=== PATIENT | female | born 1945 | race Caucasian/White ===

== ENCOUNTER → 2017-09-02 | Outpatient (CLI) | payer MEDICARE, OTHER ==
[~2017-09-02] MED LIST: ACTONEL35 MG PO; AMITRIPTYLINE50 MG PO; BIOTIN1000 MCG PO; BP med; CALCIUM 500 W/V1 TAB PO; CALCIUM300 MG PO; CARDIZEM CD 30300 MG PO; COREG25 MG PO; COZAAR25 MG PO; IBUPROFEN800 MG PO; NORCO 325 MG-51 TAB PO; OMEGA-31000 MG PO; ONE DAILY1 TA1 PO; PREDNISONE 5MG5 MG PO; PRILOSEC 20MG20 MG PO; VESICARE10 MG PO; VITAMIN B-1000 MCG/T PO
== END ==
LOC: MC.RAD 09:51
DX: Z12.31 Encounter for screening mammogram for malignant neoplasm of breast (principal)

== ENCOUNTER → 2018-09-23 | Outpatient (CLI) | payer MEDICARE, OTHER | LOC: COL.VAS 09-07 13:15 | DX: I77.1 Stricture of artery (principal); R22.1 Localized swelling, mass and lump, neck ==

== ENCOUNTER → 2018-09-29 | Outpatient (CLI) | payer MEDICARE, OTHER | LOC: MC.RAD 14:09 | DX: Z12.31 Encounter for screening mammogram for malignant neoplasm of breast (principal); R92.0 Mammographic microcalcification found on diagnostic imaging of breast; N64.89 Other specified disorders of breast ==

== ENCOUNTER → 2018-10-07 | Outpatient (CLI) | payer MEDICARE, OTHER | LOC: MC.RAD 12:55 | DX: R92.0 Mammographic microcalcification found on diagnostic imaging of breast (principal) | CPT/HCPCS: G0279 ==

== ENCOUNTER → 2019-01-04 | Outpatient (CLI) | payer MEDICARE, OTHER | LOC: COL.VAS 12:56 | DX: R94.31 Abnormal electrocardiogram [ECG] [EKG] (principal) ==

== ENCOUNTER → 2019-01-18 | Outpatient (CLI) | payer MEDICARE, OTHER | LOC: COL.RAD 07:57 | DX: N18.3 Chronic kidney disease, stage 3 (moderate) (principal) ==

== ENCOUNTER 2019-01-25 16:16 | Inpatient (IN) | payer MEDICARE, OTHER ==
[2019-01-25] VITALS (152 sets, daily range): BP systolic 107; BP diastolic 66; PULSE 62; TEMP 97.5; O2SAT 83–100
[~2019-01-25] VITALS: Ht 160 cm; Wt 90.4 kg
[~2019-01-25 16:16] MED LIST changes: +AMITRIPTYLINE H50 M1 PO; -AMITRIPTYLINE50 MG PO; +AMOXICILLIN 8751 TAB PO; -BIOTIN1000 MCG PO; -CALCIUM 500 W/V1 TAB PO; +CALCIUM 600MG+D1 TAB PO; +COREG12.5 MG PO; -COREG25 MG PO; +COZAAR 50MG50 MG/TAB PO; -COZAAR25 MG PO; +NATURE'S BLE1000 MCG PO
[2019-01-25 16:52] LABS: BASO % 0.3 % (0.0-2.0); EOS # 0.1 (0.0-0.7); EOS % 0.6 % (0-4.0); GRAN # 5.6 (1.4-6.5); GRAN % 64.6 % (42.2-75.2); LYMPH # 2.3 (1.2-3.4); LYMPH % 26.9 % (20.0-51.0); MEAN CELL VOLUME 106 fl (80.0-100.0); MEAN CORPUSCULAR HGB CONC 30 g/dl (33.0-37.0); MEAN PLATELET VOLUME 9.2 fl (7.4-10.4); MONO # 0.6 (0.1-0.6); MONO % 6.9 % (1.7-9.3); PLATELET COUNT 370 K/mm3 (130-400); RED BLOOD COUNT 2.88 M/mm3 (4.10-5.30); REDCELL DISTRIBUTION WIDTH-CV 13.6 % (11.5-14.5)
[2019-01-25 16:53] LABS: HEMATOCRIT 30.6 % (37.0-47.0); HEMOGLOBIN 9.3 g/dl (12.5-16.0); MEAN CORPUSCULAR HEMOGLOBIN 32 pg (27.0-31.0)
[2019-01-25 16:58] LABS: ALANINE AMINOTRANSFERASE 17 U/L (9-52); ALBUMIN 4.1 gm/dL (3.5-5.0); ALKALINE PHOSPHATASE 59 U/L (50-136); ANION GAP 11 mmol/L (7-16); AST,SGOT 24 U/L (15-37); BILIRUBIN,TOTAL 0.3 mg/dL (0.0-1.0); BLOOD UREA NITROGEN 48 mg/dL (7-17); C-REACTIVE PROTEIN 0.6 mg/dL (0.0-0.9); CALCIUM 9.1 mg/dL (8.4-10.2); CARBON DIOXIDE 23 mmol/L (22-30); CHLORIDE 105 mmol/L (98-107); CREATININE, serum 1.54 (0.52-1.25); GLUCOSE 100 mg/dL (74-106); SODIUM 139 mmol/L (137-145); TOTAL PROTEIN 7.6 gm/dL (6.4-8.2)
[2019-01-25 17:14] LABS: TROPONIN-I < 0.012 ng/mL (0.000-0.035)
[2019-01-25 17:49] LABS: ARTERIAL BLD GAS O2 SATURATION 91.8 % (92-100); ARTERIAL BLD GAS TCO2 CT 23.4; ARTERIAL BLOOD GAS HCO3 22.2 meq/L (22-26); ARTERIAL BLOOD GAS PCO2 40.1 mmHg (35-45); ARTERIAL BLOOD GAS PO2 69.5 mmHg (80-100); ARTERIAL BLOOD GAS pH 7.36 (7.35-7.45)
[2019-01-25] MEDS ORDERED: ROBITUSSIN A-C S1 M1 PO (18:12)
[2019-01-25] MEDS ORDERED: DETROL LA4 PO (18:13)
[2019-01-25] MEDS ORDERED: FORTEO250 MCG/ML (18:14)
[2019-01-25] MEDS ORDERED: ALDACTONE 25MG25 M1 PO (18:14)
[2019-01-25] MEDS ORDERED: TYLENOL 500MG500 MG PO (18:17)
[2019-01-25] MEDS ORDERED: ERGOCALCIFER50000 IU PO (18:17)
[2019-01-25] MEDS ORDERED: NATURAL E400 IU PO (18:19)
[2019-01-25] MEDS ORDERED: SYNTHROID0.05 MG/TA PO (18:19)
[2019-01-25] MEDS ORDERED: VITAFUSION PO (22:23)
[2019-01-26] VITALS (372 sets, daily range): BP systolic 123–187; BP diastolic 48–108; PULSE 58–84; TEMP 36.6–36.8; O2SAT 35–100
[2019-01-26 05:57] LABS: BASO % 0.4 % (0.0-2.0); EOS # 0.1 (0.0-0.7); EOS % 1.8 % (0-4.0); GRAN # 4.2 (1.4-6.5); GRAN % 58.5 % (42.2-75.2); LYMPH # 2.2 (1.2-3.4); LYMPH % 31.2 % (20.0-51.0); MEAN CELL VOLUME 105 fl (80.0-100.0); MEAN CORPUSCULAR HGB CONC 31 g/dl (33.0-37.0); MEAN PLATELET VOLUME 9.4 fl (7.4-10.4); MONO # 0.6 (0.1-0.6); MONO % 7.8 % (1.7-9.3); PLATELET COUNT 335 K/mm3 (130-400); RED BLOOD COUNT 2.67 M/mm3 (4.10-5.30); REDCELL DISTRIBUTION WIDTH-CV 13.5 % (11.5-14.5)
[2019-01-26 05:59] LABS: HEMATOCRIT 28.1 % (37.0-47.0); HEMOGLOBIN 8.6 g/dl (12.5-16.0); MEAN CORPUSCULAR HEMOGLOBIN 32 pg (27.0-31.0)
[2019-01-26 06:10] LABS: CALCIUM 8.7 mg/dL (8.4-10.2); CREATININE, serum 1.2 (0.52-1.25); POTASSIUM 4.3 mmol/L (3.4-5.0)
--- NOTE | 2019-01-26 11:23 | NUR ---
Dr Potts rounding on patient at bedside, plan for echo today and transfer to floor unit or home pending results. Dr Morrow notified of plan and new orders for heart healthy diet implemented.
--- NOTE | 2019-01-26 11:51 | NUR ---
SW met with patient about discharge planning. Patient lives independently at home with her . Agus's PCP is Dr Garza and she obtains prescriptions from [facility] or [facility]. Patient does not use any home health or DME in the home. Patient reports she does have a DPOA. Patient plans to return home with her when she is discharged. HANS does not anticipate any discharge needs.
--- NOTE | 2019-01-26 16:37 | NUR ---
Report called to Lexy NEAL on medical floor. Will take pt to room 311 on tele.
--- NOTE | 2019-01-26 16:37 | NUR ---
received report from ÁNGEL Bach.
--- NOTE | 2019-01-26 17:00 | NUR ---
PATIENT ARRIVED TO ROOM 311 VIA WHEELCHAIR ACCOMPANIED BY SAUD RN.PATIENT ORIENTED TO ROOM.DENIES ANY NEEDS AT THIS TIME.CALL LIGHT IN REACH
--- NOTE | 2019-01-26 17:06 | NUR ---
Report given to RN, patient transferred up to the 3rd floor via wheelchair, belongings sent with patient, handoff given to Lexy at bedside.
--- NOTE | 2019-01-26 18:35 | NUR ---
pt awake,a/ox3.denies pain or discomfort at this time.LSCTA.patient VSS.HR 90s on monitor.denies dizziness,patient denies any concerns at this time.will continue to monitor.call light in reach
--- NOTE | 2019-01-26 18:57 | NUR ---
REPORT GIVEN TO ÁNGEL SCHULTE.
--- NOTE | 2019-01-26 20:05 | NUR ---
Patient resting in recliner, assessment completed- lungs clear, abdominal sound active, alert and oriented, iv site flushed- no complications, denies pain. Evening medications administered, no needs at this time.
[2019-01-27 03:09] VITALS: BP 134/47; PULSE 78; TEMP 97.8
--- NOTE | 2019-01-27 05:00 | NUR ---
PT slept for most of the night, VSS, no reports of pain. No needs at this time.
--- NOTE | 2019-01-27 06:48 | NUR ---
report given to ÁNGEL Jeffery.
[2019-01-27 07:11] LABS: BASO % 0.5 % (0.0-2.0); EOS # 0.2 (0.0-0.7); EOS % 3.4 % (0-4.0); GRAN # 3.5 (1.4-6.5); GRAN % 55.1 % (42.2-75.2); LYMPH # 2.1 (1.2-3.4); LYMPH % 33.8 % (20.0-51.0); MEAN CELL VOLUME 104 fl (80.0-100.0); MEAN CORPUSCULAR HGB CONC 31 g/dl (33.0-37.0); MEAN PLATELET VOLUME 9.3 fl (7.4-10.4); MONO # 0.4 (0.1-0.6); MONO % 6.7 % (1.7-9.3); PLATELET COUNT 348 K/mm3 (130-400); RED BLOOD COUNT 3.07 M/mm3 (4.10-5.30); REDCELL DISTRIBUTION WIDTH-CV 13.4 % (11.5-14.5)
[2019-01-27 07:14] LABS: HEMATOCRIT 31.8 % (37.0-47.0); HEMOGLOBIN 9.8 g/dl (12.5-16.0); MEAN CORPUSCULAR HEMOGLOBIN 32 pg (27.0-31.0)
[2019-01-27 07:17] LABS: CALCIUM 9.5 mg/dL (8.4-10.2); CREATININE, serum 1.17 (0.52-1.25); POTASSIUM 4.1 mmol/L (3.4-5.0)
[2019-01-27 07:41] VITALS: BP 176/62; PULSE 80; TEMP 98
--- NOTE | 2019-01-27 07:57 | NUR ---
Pt is awake and A/Ox4, ambulating around room. She denies any pain or discomfort. Saline lock to right arm is free of complications. Heart remains in NSR per tele, in the 90s. Pt denies any other needs, anxious to see to go home.
[2019-01-27 11:32] VITALS: BP 134/39; PULSE 82; TEMP 98.1
--- NOTE | 2019-01-27 11:32 | NUR ---
First visit from the bakery helper. No needs right now.
--- NOTE | 2019-01-27 12:16 | NUR ---
Pt is sitting up in bed. Updated on plan of care by JANELLE Bonilla. Pt denies pain or any other needs.
[2019-01-27 17:14] VITALS: BP 137/70; PULSE 89; TEMP 98.1
--- NOTE | 2019-01-27 17:37 | NUR ---
Pt has had an overall uneventful shift. She has been ambulating hallways with without any complications. Denies any other needs.
[2019-01-27 19:36] VITALS: BP 129/47; PULSE 87; TEMP 97.9
--- NOTE | 2019-01-27 21:58 | NUR ---
Pt resting in recliner wtaching tv, assessment completed- see shift assessment for details. Denies pain, VSS. Given evening medications. Pt on telemetry, HR 90. No further needs at this time.
[2019-01-27 23:22] VITALS: BP 152/60; PULSE 84; TEMP 97.1
[2019-01-28 03:16] VITALS: BP 134/49; PULSE 82; TEMP 97.6
--- NOTE | 2019-01-28 05:01 | NUR ---
Pt slept most of the night, VSS, afebrile. Did refuse heparin at 0215- pt states, "I'm going home today, I don't need it". Discussed with patient prevention of DVT's, pt still did not want to take it. No needs at this time.
--- NOTE | 2019-01-28 06:47 | NUR ---
report given to ÁNGEL Stevens.
[2019-01-28 07:39] VITALS: BP 142/48; PULSE 81; TEMP 97.8
--- NOTE | 2019-01-28 08:05 | NUR ---
Assessment completed, alert/oriented, vital signs stable, denies any pain or discomfort, heart RRR/ SR on tele and heart rate is 80-90, distal pulses are palpable, lungs CTA/ no reps.diffiuclty, she is sitting up in bed ordering breakfast, she has given her POM / Forteo injection and medicaiton returned to the fridge, she is up in the room independnetly and hoping to be discharged this morning some time
--- NOTE | 2019-01-28 09:48 | NUR ---
HANS attended clinical rounds. The patient is to discharge back home with her today, 01/28. SW presented and explained the IM form to the patient. The patient verbalized understanding, signed, and she was provided a copy. No additional needs at this time.
[2019-01-28] MEDS ORDERED: COREG 6.256.25 MG/TA PO (09:56)
--- NOTE | 2019-01-28 11:24 | NUR ---
discharge orders reviewed with the patient, instructed to follow up with PCP and Cardiology as we have scheduled for her, discussed medication changes, script for Coreg sent to pharmacy (1/2 of previous dose), IV removed she is abmulatory and leaving with her , MD ALLERGY IMMUNOLOGY escorted her out
== END 2019-01-28 11:42 | disposition home or self-care (01) | DRG 309 ==
LOC: COL.ER 16:16 → ICU 17:44 → MEDICAL 01-26 16:55
PROVIDERS: Emergency Medicine; ADMIT Hospitalist
DX: R00.1 Bradycardia, unspecified (principal); I13.0 Hypertensive heart and chronic kidney disease with heart failure and stage 1 through stage 4 chronic kidney disease, or unspecified chronic kidney disease; N17.9 Acute kidney failure, unspecified; I49.5 Sick sinus syndrome; I48.91 Unspecified atrial fibrillation; D64.9 Anemia, unspecified; E03.9 Hypothyroidism, unspecified; N18.3 Chronic kidney disease, stage 3 (moderate); M81.0 Age-related osteoporosis without current pathological fracture; R51 Headache; Z88.9 Allergy status to unspecified drugs, medicaments and biological substances; T88.7XXA Unspecified adverse effect of drug or medicament, initial encounter; I27.20 Pulmonary hypertension, unspecified; M35.3 Polymyalgia rheumatica; I50.9 Heart failure, unspecified; E66.9 Obesity, unspecified; D50.9 Iron deficiency anemia, unspecified; N32.81 Overactive bladder; G47.00 Insomnia, unspecified; Z90.710 Acquired absence of both cervix and uterus; Z96.651 Presence of right artificial knee joint
CPT/HCPCS: 99222-AI; 99231-AI; 99239; J1644; J7030

== ENCOUNTER → 2019-04-11 | Outpatient (CLI) | payer MEDICARE, OTHER ==
[~2019-04-11] MED LIST changes: +ALDACTONE 25MG25 M1 PO; +COREG 6.256.25 MG/TA PO; +DETROL LA4 PO; +ERGOCALCIFER50000 IU PO; +FORTEO250 MCG/ML; +NATURAL E400 IU PO; +ROBITUSSIN A-C S1 M1 PO; +SYNTHROID0.05 MG/TA PO; +TYLENOL 500MG500 MG PO; +VITAFUSION PO
== END ==
LOC: MC.RAD 08:47
DX: R92.0 Mammographic microcalcification found on diagnostic imaging of breast (principal); R92.1 Mammographic calcification found on diagnostic imaging of breast

== ENCOUNTER 2019-05-06 17:01 | Observation (INO) | payer MEDICARE, OTHER ==
[~2019-05-06] VITALS: Ht 160 cm; Wt 94.0 kg
[2019-05-06] VITALS (8 sets, daily range): BP systolic 14–158; BP diastolic 51–68; PULSE 78–844; TEMP 98.2–98.4
[2019-05-06 17:59] LABS: BASO % 0.5 % (0.0-2.0); EOS # 0.1 (0.0-0.7); EOS % 1.6 % (0-4.0); GRAN % 66.6 % (42.2-75.2); LYMPH % 25.8 % (20.0-51.0); MEAN CELL VOLUME 91 fl (80.0-100.0); MEAN CORPUSCULAR HGB CONC 29 g/dl (33.0-37.0); MEAN PLATELET VOLUME 9.6 fl (7.4-10.4); MONO # 0.4 (0.1-0.6); MONO % 5.2 % (1.7-9.3); PLATELET COUNT 323 K/mm3 (130-400); RED BLOOD COUNT 2.33 M/mm3 (4.10-5.30); REDCELL DISTRIBUTION WIDTH-CV 15.7 % (11.5-14.5)
[2019-05-06 18:02] LABS: HEMATOCRIT 21.1 % (37.0-47.0); HEMOGLOBIN 6.2 g/dl (12.5-16.0); MEAN CORPUSCULAR HEMOGLOBIN 27 pg (27.0-31.0)
[2019-05-06 18:12] LABS: ALBUMIN 3.9 gm/dL (3.5-5.0); BILIRUBIN,TOTAL 0.2 mg/dL (0.0-1.0); CALCIUM 9.2 mg/dL (8.4-10.2); CREATININE, serum 1.39 (0.52-1.25); POTASSIUM 4.2 mmol/L (3.4-5.0); TOTAL PROTEIN 7.1 gm/dL (6.4-8.2)
[2019-05-06 18:22] LABS: INR 0.9 (0.8-3.0); PROTHROMBIN TIME 10.8 SECONDS (9.7-12.8)
[2019-05-06 18:24] LABS: PARTIAL THROMBOPLASTIN TIME 26.9 SECONDS (26.0-37.0)
[2019-05-06] MEDS ORDERED: VITAMIN D 50,1.25 MG PO (20:27)
--- NOTE | 2019-05-06 20:30 | NUR ---
pt arrived to medical unit- reports no pain, no n/v, no dizziness. reports of "i have just felt kind of out of it". VSS. Pt skin is pale. iv to the left hand. blood started, tolerating well. stayed in room for first 15 min. no needs at this time. call light in reach
[2019-05-06 22:21] LABS: IRON,SERUM 22 ug/dL (35-150)
[2019-05-06 22:30] LABS: TOTAL IRON BINDING CAPACITY 477 ug/dL (265-497)
[2019-05-06 22:57] LABS: FERRITIN 8 ng/mL (11-264)
[2019-05-07] VITALS (8 sets, daily range): BP systolic 134–160; BP diastolic 53–77; PULSE 72–95; TEMP 97.8–98.2
[2019-05-07 02:19] LABS: HEMATOCRIT 23.4 % (37.0-47.0); HEMOGLOBIN 6.9 g/dl (12.5-16.0)
--- NOTE | 2019-05-07 04:26 | NUR ---
STARTED 2ND BLOOD TRANSFUSION AT THIS TIME. REMAINING WITH PT FOR FISRT 15 MINS. PT VSS. WILL CONTINUE VITAL CHECKS PER PROTOCOL. REPORTS NO S/S OF REACTION AT THIS TIME. WILL CONTINUE MONITOR.
[2019-05-07 05:04] LABS: MUCOUS Present /lpf; PH 6 (5-8); SQUAMOUS EPITHELIAL None Seen /hpf; URINE APPEARANCE Clear; URINE BACTERIA None Seen /hpf; URINE BILIRUBIN Negative (NEGATIVE); URINE BLOOD Negative (NEGATIVE); URINE COLOR Straw; URINE GLUCOSE Negative (NEGATIVE); URINE KETONE Negative (NEGATIVE); URINE LEUKOCYTE ESTERASE Negative (NEGATIVE); URINE NITRATE Negative (NEGATIVE); URINE PROTEIN(semi-quant) Negative (NEGATIVE); URINE RBC None Seen /hpf; URINE UROBILINOGEN Negative (NEGATIVE)
[2019-05-07 07:22] LABS: COLLECTION METHOD CLEAN CATCH
--- NOTE | 2019-05-07 07:31 | NUR ---
REPORT GIVEN TO ÁNGEL MOCTEZUMA. PT REPORTS NO NEEDS
--- NOTE | 2019-05-07 07:45 | NUR ---
PATIENT ASSESSMENT COMPLETED. SHE DENIES ANY PAIN OR NEEDS LITTLE SOB WITH ACTIVITY. SHE IS HOPING TO GO HOME TODAY.
[2019-05-07 07:58] LABS: BASO % 0.8 % (0.0-2.0); EOS # 0.1 (0.0-0.7); EOS % 2.4 % (0-4.0); GRAN # 2.5 (1.4-6.5); GRAN % 49.3 % (42.2-75.2); HEMATOCRIT 26.6 % (37.0-47.0); HEMOGLOBIN 8.3 g/dl (12.5-16.0); LYMPH # 1.9 (1.2-3.4); LYMPH % 37.6 % (20.0-51.0); MEAN CELL VOLUME 91 fl (80.0-100.0); MEAN CORPUSCULAR HEMOGLOBIN 28 pg (27.0-31.0); MEAN CORPUSCULAR HGB CONC 31 g/dl (33.0-37.0); MEAN PLATELET VOLUME 9.4 fl (7.4-10.4); MONO # 0.5 (0.1-0.6); MONO % 9.7 % (1.7-9.3); PLATELET COUNT 279 K/mm3 (130-400); RED BLOOD COUNT 2.94 M/mm3 (4.10-5.30)
[2019-05-07 08:09] LABS: CALCIUM 9.4 mg/dL (8.4-10.2); CREATININE, serum 1.18 (0.52-1.25); POTASSIUM 4.5 mmol/L (3.4-5.0)
--- NOTE | 2019-05-07 11:51 | NUR ---
HANS met with the patient and her , Dino to discuss a discharge plan. The pt lives in [place] with Dino. The pt has a cane and a walker but does not use them. The pt reports independence with ADLs. The pt's PCP is Dr. Garza and receives medications from [facility] with no difficulties. The pt does not have advanced directives in the EMR but reports they are completed and designate Dino Arnold. The pt plans to return home upon discharge with Dino providing transportation. There are no additional needs at this time.
--- NOTE | 2019-05-07 12:30 | NUR ---
PATIENT DECLINED TO TAKE IRON TABLET HERE SHE WILL TAKE AT HOME WHEN SHE EATS LUNCH.
[2019-05-07] MEDS ORDERED: FERROUS SU325 MG/TAB PO (12:34)
--- NOTE | 2019-05-07 13:30 | NUR ---
PATIENT DISCHARGE INFORMATION REVIEWED WITH PATIENT. NEW SCRIPT SENT TO [facility] PER PREFERENCE. SHE DENIES ANY QUESTIONS. ALL BELONGINGS SENT WITH HER NOTHING IN THE [facility] OR PHARMACY. WAITING FOR HUSBANDS ARRIVAL.
[2019-05-09 11:00] LABS: TRANSFERRIN 358 mg/dL (192-382)
== END 2019-05-07 13:40 | disposition home or self-care (01) ==
LOC: COL.ER 17:01 → MEDICAL 18:45
PROVIDERS: Family Medicine; Nurse Practitioner Family; ADMIT Internal Medicine
DX: I12.9 Hypertensive chronic kidney disease with stage 1 through stage 4 chronic kidney disease, or unspecified chronic kidney disease (principal); N18.3 Chronic kidney disease, stage 3 (moderate); D63.1 Anemia in chronic kidney disease; Z66 Do not resuscitate; E03.9 Hypothyroidism, unspecified; M81.0 Age-related osteoporosis without current pathological fracture; M35.3 Polymyalgia rheumatica; Z79.899 Other long term (current) drug therapy; Z90.710 Acquired absence of both cervix and uterus; Z90.49 Acquired absence of other specified parts of digestive tract; Z96.651 Presence of right artificial knee joint; N32.81 Overactive bladder; G47.00 Insomnia, unspecified
CPT/HCPCS: C9113; G0378; P9016

== ENCOUNTER 2019-06-29 13:00 | Outpatient (RCR) | payer MEDICARE, OTHER ==
[2019-05-18 10:07] VITALS: BP 154/71; PULSE 88; TEMP 97.6
[2019-06-09 16:24] VITALS: BP 150/66; PULSE 85; TEMP 97.8
[~2019-06-29] VITALS: Ht 160 cm; Wt 93.2 kg
[~2019-06-29 13:00] MED LIST changes: +BIOTIN5000 MCG PO; +FERROUS SU325 MG/TAB PO; +FERROUSAL325 MG PO; +FORTEO250 MCG/ML INJ; +VITAMIN D 50,1.25 MG PO
[2019-06-29 13:54] VITALS: BP 139/56; PULSE 86; TEMP 98.1
== END 2019-06-29 15:46 | disposition home or self-care (01) ==
LOC: EUO 13:00
DX: D50.9 Iron deficiency anemia, unspecified (principal); Z79.899 Other long term (current) drug therapy
CPT/HCPCS: J2916; J7050

== ENCOUNTER → 2019-12-01 | Outpatient (CLI) | payer MEDICARE, OTHER | LOC: MC.RAD 11:34 | DX: Z12.31 Encounter for screening mammogram for malignant neoplasm of breast (principal) ==

== ENCOUNTER → 2020-12-03 | Outpatient (CLI) | payer MEDICARE, OTHER ==
[~2020-12-03] MED LIST changes: +BONIVA150 MG PO; +COREG 25MG25 MG/TAB PO; +K-DUR 10 MEQ T10 MEQ PO; +LASIX 40MG TABL40 MG PO
== END ==
LOC: MC.RAD 09:56
DX: Z12.31 Encounter for screening mammogram for malignant neoplasm of breast (principal)

== ENCOUNTER → 2021-12-13 | Outpatient (CLI) | payer MEDICARE, OTHER | LOC: MC.RAD 10:53 | DX: Z12.31 Encounter for screening mammogram for malignant neoplasm of breast (principal) ==

== ENCOUNTER → 2022-05-29 | Outpatient (CLI) | payer MEDICARE, OTHER | LOC: COL.RAD 08:33 | DX: M51.26 Other intervertebral disc displacement, lumbar region (principal); M51.27 Other intervertebral disc displacement, lumbosacral region ==

== ENCOUNTER 2023-07-06 13:11 | Inpatient (IN) | payer MEDICARE, OTHER ==
[~2023-07-06] VITALS: Ht 160 cm; Wt 86.0 kg
[2023-07-06 14:27] LABS: BASO # 0.1 K/mm3 (0.0-0.2); BASO % 0.6 % (0.0-2.0); EOS # 0.2 K/mm3 (0.0-0.7); EOS % 2.5 % (0.0-4.0); GRAN # 6.1 K/mm3 (1.4-6.5); GRAN % 75.8 % (42.2-75.2); HEMOGLOBIN 10.8 g/dl (12.5-16.0); LYMPH # 1.2 K/mm3 (1.2-3.4); LYMPH % 14.7 % (20.0-51.0); MEAN CELL VOLUME 106 fl (80.0-100.0); MEAN CORPUSCULAR HEMOGLOBIN 34 pg (27-31); MEAN CORPUSCULAR HGB CONC 32 g/dl (33.0-37.0); MEAN PLATELET VOLUME 10.2 fl (7.4-10.4); MONO # 0.5 K/mm3 (0.1-0.6); PLATELET COUNT 302 K/mm3 (130-400); REDCELL DISTRIBUTION WIDTH-CV 13.1 % (11.5-14.5)
[2023-07-06 14:28] LABS: HEMATOCRIT 33.9 % (37.0-47.0)
[2023-07-06 14:30] VITALS: BP 104/75; PULSE 111
[2023-07-06 14:30] LABS: INR 1.2 (0.8-3.0); PROTHROMBIN TIME 12.6 SECONDS (9.7-12.8)
[2023-07-06 14:32] LABS: BILIRUBIN,TOTAL 0.6 mg/dL (0.2-1.2); CREATININE, serum 1.22 mg/dL (0.57-1.11); POTASSIUM 3.8 mmol/L (3.5-4.5); TOTAL PROTEIN 7.6 gm/dL (6.2-8.1)
[2023-07-06 14:36] LABS: TROPONIN-I 0.018 ng/mL (0.00-0.033)
[2023-07-06] MEDS ORDERED: LASIX 20MG TABL20 MG PO (15:59)
[2023-07-06] MEDS ORDERED: COZAAR100 MG PO (16:04)
[2023-07-06 17:00] VITALS: BP_SYST 117
[2023-07-06 18:04] VITALS: BP 117/74; PULSE 96; TEMP 97.8
--- NOTE | 2023-07-06 18:29 | NUR ---
Patient arrived to the unito aproximateley 1800, alert and oriented x 4, VSS, RA, getting cardizem gtt at 5mg/hr. Assessment intake completed.
[2023-07-06 19:07] VITALS: BP_SYST 117
[2023-07-06 19:22] VITALS: BP 106/56; PULSE 106; TEMP 98.3
--- NOTE | 2023-07-06 20:00 | NUR ---
CARDIZEM GTTS RUNNING AT 5ML/HR.
[2023-07-06 23:50] VITALS: BP 101/46; PULSE 88; TEMP 98.3
[2023-07-07] VITALS (12 sets, daily range): BP systolic 100–120; BP diastolic 50–67; PULSE 50–99; TEMP 97–97.9
--- NOTE | 2023-07-07 00:53 | NUR ---
UPON SHIFT ASSESSMENT, MAY WAS UP IN BED EATING DINNER. SHE DENIED PAIN AND SOA. BILATERAL FINE CRACKLES WERE AUSCULTATED IN UPPER LOBES THAT CLEARED WITH COUGH. TELE READS AFIB WITH 89 BPM. OTHER VSS ARE WNL. CALL LIGHT WITHIN REACH.
--- NOTE | 2023-07-07 01:40 | NUR ---
REASSESSED PATIENT FOLLOWING COUGHING EPISODE. TACHYCARDIA 122 RESOLVED TO 90 ON TELE AND O2 SAT 96-97%. PATIENT DENIED CHEST PAIN AND DYSPNEA RESOLVED AFTER COUGHING CEASED. PATIENT REMAINS IN AFIB. AXO X 4.
--- NOTE | 2023-07-07 07:05 | NUR ---
TOWARDS END OF SHIFT, MAY REMAINS IN AFIB WITH RATES 80-90 BPM. SHE DENIES PAIN, BUT STILL COMPLAINS OF COUGH. VSS ARE OTHERWISE WNL. CARDIZEM GTTS RUNNING 5ML/HR CALL LIGHT WITHIN REACH.
[2023-07-07 08:54] LABS: ANION GAP 15 mmol/L (7-16); BLOOD UREA NITROGEN 19 mg/dL (10-20); C-REACTIVE PROTEIN 15.16 mg/dL (0.00-0.50); CALCIUM 10.2 mg/dL (8.4-10.2); CARBON DIOXIDE 22 mmol/L (23-31); CHLORIDE 102 mmol/L (98-107); CREATININE, serum 1.25 mg/dL (0.57-1.11); GLUCOSE 145 mg/dL (70-99); POTASSIUM 4.1 mmol/L (3.5-4.5); SODIUM 139 mmol/L (136-145)
[2023-07-07 09:05] LABS: TROPONIN-I < 0.010 ng/mL (0.00-0.033)
--- NOTE | 2023-07-07 15:35 | NUR ---
cemetery workers supervisor attempted to contact patient to discuss discharge planning. Patient did not answer. SW will follow.
--- NOTE | 2023-07-07 20:00 | NUR ---
UPON SHIFT ASSESSMENT MAY WAS UP IN BEDSIDE CHAIR AND IN AN AGREEABLE MOOD. SHE COMPLAINED OF NO PAIN OR DYSPNEA. LUNG SOUNDS CLEAR AND MAY IS AXO X 4 WITH MINIMAL + 1 EDEMA IN LOWER EXTREMITIES. CALL LIGHT WITHIN REACH.
[2023-07-08 01:00] VITALS: BP_SYST 111
[2023-07-08 03:09] VITALS: BP 107/51; PULSE 93; TEMP 97.6
[2023-07-08 05:11] VITALS: BP_SYST 107
--- NOTE | 2023-07-08 05:56 | NUR ---
TOWARDS THE END OF SHIFT, MAY WAS SLEEPING SOUNDLY. SHE AWOKE AND REQUESTED I GIVE HER SYNTHROID AND DOXYCYCLINE 1 HOUR APART. SHE DENIED PAIN AND WAS EAGER TO GET BACK TO SLEEP. SHE REMAINS AFIB RATE CONTROLLED 70-80 BPM. CALL LIGHT WITHIN REACH.
[2023-07-08 07:39] VITALS: BP 113/72; PULSE 88; TEMP 97.7
[2023-07-08 08:24] VITALS: BP_SYST 113
--- NOTE | 2023-07-08 08:33 | NUR ---
PATIENT ALERT AND ORIENTED X4. PATIENT RESTING IN CHAIR. SHE EXPRESSED LOOKING FORWARDS TO BEING DISCHARGED. PATIENT REPORTS NO PAIN AND SOME COUGH BUT SAYS ITS GETTING BETTER. TALKED TO HER ABOUT MEDICATION DISAGE CHANGES. CALL LIGHT WITHIN REACH, NO OTHER CONCERNS AT THIS TIME.
[2023-07-08] MEDS ORDERED: ELIQUIS 5MG PO (09:48)
[2023-07-08] MEDS ORDERED: MONODOX100 PO (09:48)
[2023-07-08] MEDS ORDERED: DECADRON6 MG PO (09:49)
[2023-07-08] MEDS ORDERED: CARDIZEM CD 30300 MG PO ×2 (09:49)
[2023-07-08] MEDS ORDERED: PROAIR HFA0.09 MG/AC IH (09:50)
[2023-07-08 09:58] LABS: HEMOGLOBIN 10.5 g/dl (12.5-16.0); MEAN CELL VOLUME 104 fl (80.0-100.0); MEAN CORPUSCULAR HEMOGLOBIN 33 pg (27-31); MEAN CORPUSCULAR HGB CONC 32 g/dl (33.0-37.0); MEAN PLATELET VOLUME 9.6 fl (7.4-10.4); PLATELET COUNT 377 K/mm3 (130-400); RED BLOOD COUNT 3.15 M/mm3 (4.10-5.30); REDCELL DISTRIBUTION WIDTH-CV 12.8 % (11.5-14.5)
[2023-07-08 10:01] LABS: HEMATOCRIT 32.8 % (37.0-47.0)
[2023-07-08 10:11] LABS: CALCIUM 10.2 mg/dL (8.4-10.2); CREATININE, serum 1.63 mg/dL (0.57-1.11); POTASSIUM 4.4 mmol/L (3.5-4.5)
[2023-07-08 10:41] LABS: LYMPHOCYTE 8 % (20.0-51.0); NEUTROPHILS 91 % (42.0-75.2); PLATELET ESTIMATE NORMAL (NORMAL)
[2023-07-08 10:42] LABS: HYPOCHROMIA 1+
--- NOTE | 2023-07-08 11:41 | NUR ---
novelty worker (HANS) contacted patient via telephone due to COVID protocol to discuss discharge planning. Patient confirmed she lives in [place] with her , Dino P# [phone]. Patient expressed she sees Dr. Garza currently but they are retiring and she will begin to see Dr. Rider after that. Patient's preferred pharmacy is [facility] in [place]. Patient denied any current issues with affording her medications but she received a new medication "Eliquis" that may be expensive. SW expressed to speak with her pharmacy to determine if they have discounts available. Patient expressed she was reading the information on the medication and there was concerns about her liver and kidney, so she was going to reach out to her kidney and liver doctors prior to taking the medications. SW also expressed she could speak with Dr. Cm the hospitalist with any additional concerns while in the hospital. Patient has a [facility] appointing Nanda and Dino Underwood as agents. Patient has a CPAP machine at home and reports she is independent with ADLS. SW spoke with patient about home health services to determine if she was interested in those services. Patient declined home health services as PT notified her that she did not need those services returning home. Patient would like to return home at time of discharge. Patient did not have any questions or concerns at this time. novelty worker contacted patient's , Dino, to notify him of patient's discharge. SW expressed patient was going to get in touch with him after speaking with her nurse to ensure she did not need any additional treatments prior to discharge. SW expressed she wanted to notify Dino patient would be on a new medication, "Eliquis" and patient had concerns about side effects to her kidney and liver and would speak with her doctors about them. SW mentioned home health and that patient declined these services. Dino agreed he did not feel it was necessary at this time. Discharge Plan: Home
[2023-07-08] MEDS ORDERED: TOPROL XL 50MG50 MG PO (12:04)
--- NOTE | 2023-07-08 12:46 | NUR ---
PATIENT DISCHARGE INSTRUCTIONS GIVEN. NO QUESTIONS OR CONCERNS FROM PATIENT. PATIENT ESCORTED OUT OF UNIT BY MEDICAL STAFF.
== END 2023-07-08 12:50 | disposition home or self-care (01) | DRG 177 ==
LOC: COL.ER 13:11 → MEDICAL 15:51
PROVIDERS: Emergency Medicine; ADMIT Internal Medicine
DX: U07.1 COVID-19 (principal); J12.82 Pneumonia due to coronavirus disease 2019; I13.0 Hypertensive heart and chronic kidney disease with heart failure and stage 1 through stage 4 chronic kidney disease, or unspecified chronic kidney disease; I50.22 Chronic systolic (congestive) heart failure; I42.0 Dilated cardiomyopathy; I48.91 Unspecified atrial fibrillation; D64.9 Anemia, unspecified; N18.30 Chronic kidney disease, stage 3 unspecified; Z96.651 Presence of right artificial knee joint; E03.9 Hypothyroidism, unspecified; K21.9 Gastro-esophageal reflux disease without esophagitis; H26.9 Unspecified cataract; M19.90 Unspecified osteoarthritis, unspecified site; I08.1 Rheumatic disorders of both mitral and tricuspid valves; Z79.890 Hormone replacement therapy; Z85.828 Personal history of other malignant neoplasm of skin; Z90.710 Acquired absence of both cervix and uterus; Z90.49 Acquired absence of other specified parts of digestive tract; Z79.899 Other long term (current) drug therapy; Z88.8 Allergy status to other drugs, medicaments and biological substances
CPT/HCPCS: J1100; J1650; J1940; J8540; Q9967

== ENCOUNTER 2023-07-22 00:40 | Inpatient (IN) | payer MEDICARE, OTHER ==
[~2023-07-22] VITALS: Ht 160 cm; Wt 84.5 kg
[2023-07-22] VITALS (516 sets, daily range): BP systolic 104–140; BP diastolic 54–81; PULSE 66–111; TEMP 97–98; O2SAT 69–100
[~2023-07-22 00:40] MED LIST changes: +COZAAR100 MG PO; +DECADRON6 MG PO; +ELIQUIS 5MG PO; +LASIX 20MG TABL20 MG PO; +MONODOX100 PO; +PROAIR HFA0.09 MG/AC IH; +TOPROL XL 50MG50 MG PO
[2023-07-22 01:07] LABS: BASO # 0.1 K/mm3 (0.0-0.2); BASO % 0.5 % (0.0-2.0); EOS # 0.2 K/mm3 (0.0-0.7); EOS % 1.8 % (0.0-4.0); GRAN # 6.4 K/mm3 (1.4-6.5); GRAN % 67.8 % (42.2-75.2); HEMATOCRIT 36.1 % (37.0-47.0); HEMOGLOBIN 11.4 g/dl (12.5-16.0); LYMPH # 2.5 K/mm3 (1.2-3.4); LYMPH % 26.3 % (20.0-51.0); MEAN CELL VOLUME 107 fl (80.0-100.0); MEAN CORPUSCULAR HEMOGLOBIN 34 pg (27-31); MEAN CORPUSCULAR HGB CONC 32 g/dl (33.0-37.0); MEAN PLATELET VOLUME 9.7 fl (7.4-10.4); MONO # 0.3 K/mm3 (0.1-0.6); MONO % 3.3 % (1.7-9.3); PLATELET COUNT 256 K/mm3 (130-400); RED BLOOD COUNT 3.37 M/mm3 (4.10-5.30); REDCELL DISTRIBUTION WIDTH-CV 13.7 % (11.5-14.5)
[2023-07-22 01:21] LABS: ALANINE AMINOTRANSFERASE 29 U/L (0-55); ALBUMIN 3.6 gm/dL (3.4-4.8); ALKALINE PHOSPHATASE 53 U/L (40-150); ANION GAP 16 mmol/L (7-16); AST,SGOT 20 U/L (5-34); BILIRUBIN,TOTAL 0.9 mg/dL (0.2-1.2); BLOOD UREA NITROGEN 16 mg/dL (10-20); CALCIUM 9.4 mg/dL (8.4-10.2); CARBON DIOXIDE 19 mmol/L (23-31); CHLORIDE 105 mmol/L (98-107); CREATININE, serum 1.29 mg/dL (0.57-1.11); GLUCOSE 142 mg/dL (70-99); POTASSIUM 3.8 mmol/L (3.5-4.5); SODIUM 140 mmol/L (136-145); TOTAL PROTEIN 7.9 gm/dL (6.2-8.1)
[2023-07-22 01:27] LABS: TROPONIN-I < 0.010 ng/mL (0.00-0.033)
[2023-07-22] MEDS ORDERED: JARDIANCE10 (01:59)
[2023-07-22] MEDS ORDERED: VITAMIN D250 MCG PO (11:06)
[2023-07-22] MEDS ORDERED: LUTEIN20 M1 PO (11:06)
[2023-07-22] MEDS ORDERED: NORVASC 5MG5 MG/TAB PO (11:07)
[2023-07-22] MEDS ORDERED: BIOTIN2500 MCG PO (11:10)
[2023-07-22] MEDS ORDERED: VITAMIN D31000 IU PO (11:14)
[2023-07-23] VITALS (18 sets, daily range): BP systolic 106–131; BP diastolic 44–78; PULSE 62–104; TEMP 97–98.1
[2023-07-23 05:51] LABS: BASO % 0.7 % (0.0-2.0); EOS # 0.2 K/mm3 (0.0-0.7); EOS % 3.2 % (0.0-4.0); GRAN # 3.9 K/mm3 (1.4-6.5); GRAN % 65.5 % (42.2-75.2); LYMPH # 1.5 K/mm3 (1.2-3.4); LYMPH % 25.9 % (20.0-51.0); MEAN CELL VOLUME 105 fl (80.0-100.0); MEAN CORPUSCULAR HGB CONC 31 g/dl (33.0-37.0); MONO # 0.3 K/mm3 (0.1-0.6); MONO % 4.2 % (1.7-9.3); PLATELET COUNT 209 K/mm3 (130-400); REDCELL DISTRIBUTION WIDTH-CV 13.6 % (11.5-14.5)
[2023-07-23 05:53] LABS: HEMATOCRIT 30.3 % (37.0-47.0); HEMOGLOBIN 9.5 g/dl (12.5-16.0); MEAN CORPUSCULAR HEMOGLOBIN 33 pg (27-31)
[2023-07-23 05:54] LABS: ALBUMIN 2.9 gm/dL (3.4-4.8); CALCIUM 8.5 mg/dL (8.4-10.2); CREATININE, serum 0.94 mg/dL (0.57-1.11); MAGNESIUM 1.9 mg/dL (1.6-2.6); PHOSPHOROUS 3.5 mg/dL (2.3-4.7); POTASSIUM 3.6 mmol/L (3.5-4.5)
[2023-07-23 05:58] LABS: INR 1.6 (0.8-3.0); PROTHROMBIN TIME 17.5 SECONDS (9.7-12.8)
[2023-07-24 03:45] VITALS: BP 116/59; PULSE 67; TEMP 97.9
[2023-07-24 04:24] VITALS: BP_SYST 116
[2023-07-24 06:09] LABS: MEAN CELL VOLUME 105 fl (80.0-100.0); MEAN CORPUSCULAR HGB CONC 31 g/dl (33.0-37.0); MEAN PLATELET VOLUME 9.9 fl (7.4-10.4); PLATELET COUNT 203 K/mm3 (130-400); REDCELL DISTRIBUTION WIDTH-CV 13.8 % (11.5-14.5)
[2023-07-24 06:10] LABS: ALBUMIN 2.9 gm/dL (3.4-4.8); CALCIUM 8.4 mg/dL (8.4-10.2); HEMATOCRIT 30.5 % (37.0-47.0); HEMOGLOBIN 9.4 g/dl (12.5-16.0); MAGNESIUM 2.4 mg/dL (1.6-2.6); MEAN CORPUSCULAR HEMOGLOBIN 32 pg (27-31); PHOSPHOROUS 3.2 mg/dL (2.3-4.7)
[2023-07-24 07:06] VITALS: BP 121/52; PULSE 67; TEMP 97.5
[2023-07-24 08:34] VITALS: BP_SYST 121
[2023-07-24] MEDS ORDERED: TOPROL XL 25MG25 MG PO (09:40)
[2023-07-24] MEDS ORDERED: CORDARONE200 MG/TAB PO (09:53)
[2023-07-24 11:03] VITALS: BP 108/51; PULSE 69; TEMP 97.5
== END 2023-07-24 12:11 | disposition home or self-care (01) | DRG 291 ==
LOC: COL.ER 00:40 → ICU 02:16 → MEDICAL 16:46
PROVIDERS: Internal Medicine; Personal Emergency Response Attendant; Physician Assistant; ADMIT Internal Medicine
DX: I13.0 Hypertensive heart and chronic kidney disease with heart failure and stage 1 through stage 4 chronic kidney disease, or unspecified chronic kidney disease (principal); I50.23 Acute on chronic systolic (congestive) heart failure; J96.01 Acute respiratory failure with hypoxia; Z96.651 Presence of right artificial knee joint; D64.9 Anemia, unspecified; N18.30 Chronic kidney disease, stage 3 unspecified; I71.21 Aneurysm of the ascending aorta, without rupture; E03.9 Hypothyroidism, unspecified; I42.0 Dilated cardiomyopathy; H26.9 Unspecified cataract; K21.9 Gastro-esophageal reflux disease without esophagitis; I08.1 Rheumatic disorders of both mitral and tricuspid valves; I48.0 Paroxysmal atrial fibrillation; Z86.16 Personal history of COVID-19; Z90.710 Acquired absence of both cervix and uterus; Z90.49 Acquired absence of other specified parts of digestive tract; Z79.890 Hormone replacement therapy; Z88.8 Allergy status to other drugs, medicaments and biological substances; Z85.828 Personal history of other malignant neoplasm of skin; Z79.01 Long term (current) use of anticoagulants; Z79.899 Other long term (current) drug therapy; Z87.01 Personal history of pneumonia (recurrent)
CPT/HCPCS: A9270; J1940; J2704; J3475

== ENCOUNTER → 2023-10-21 | Outpatient (RCR) | payer MEDICARE, OTHER ==
[~2023-10-21] MED LIST changes: +BIOTIN2500 MCG PO; +CORDARONE200 MG/TAB PO; +JARDIANCE10; +LUTEIN20 M1 PO; +NORVASC 5MG5 MG/TAB PO; +PROLIA60 MG/ML SQ; +TOPROL XL 25MG25 MG PO; +VITAMIN D250 MCG PO; +VITAMIN D31000 IU PO; +ZAROXOLYN5 MG PO
== END | disposition home or self-care (01) ==
LOC: COL.CR
DX: I50.9 Heart failure, unspecified (principal)

== ENCOUNTER 2023-11-18 15:39 | Outpatient (RCR) | payer MEDICARE, OTHER | END 2023-11-19 | disposition home or self-care (01) | LOC: COL.CR | DX: I50.9 Heart failure, unspecified (principal) ==

== ENCOUNTER 2024-01-06 15:01 | Outpatient (RCR) | payer MEDICARE, OTHER | END 2024-01-19 | LOC: COL.CR | DX: I50.9 Heart failure, unspecified (principal) ==

== ENCOUNTER → 2024-03-14 | Outpatient (CLI) | payer MEDICARE, OTHER | LOC: MC.RAD 11:00 | DX: Z12.31 Encounter for screening mammogram for malignant neoplasm of breast (principal) ==